=== PATIENT | female | born 1970 | race Two or more races ===

== ENCOUNTER 2019-07-03 01:08 | Emergency (ER) | payer OTHER ==
[2019-07-03] MEDS ORDERED: ONDANSETRON HCL INJ/PF 4 MG/2 ML SDV IV ONE (01:59)
[2019-07-03] MEDS ORDERED: NORMAL SALINE 1000 ML 1,000 ML IV ONE (01:59)
[2019-07-03 02:15] LABS: APPEARANCE,URINE TURBID; BILIRUBIN,URINE NEGATIVE (NEGATIVE); COLOR,URINE YELLOW; GLUCOSE, URINE NEGATIVE (NEGATIVE); KETONES,URINE NEGATIVE (NEGATIVE); LEUKOCYTE ESTERASE,URINE TRACE (NEGATIVE); NITRITE,URINE NEGATIVE (NEGATIVE); PROTEIN,URINE 30 mg/dL (NEGATIVE); URINE SPECIFIC GRAVITY 1.016; UROBILINOGEN,URINE NEGATIVE mg/dL (<2.0)
[2019-07-03 02:25] LABS: ABSOLUTE EOSINOPHILS # (AUTO) 0.1 10^3/uL (0.0-0.6); ABSOLUTE LYMPHOCYTES (AUTO) 2.5 10^3/uL (0.5-4.7); ABSOLUTE MONOCYTES (AUTO) 0.6 10^3/uL (0.1-1.4); ABSOLUTE NEUT (AUTO) 4.9 10^3/uL (1.7-8.2); BASOPHILS % (AUTO) 0.4 % (0-2); EOSINOPHILS % (AUTO) 1.1 % (0-6); HEMATOCRIT 39.6 % (36.0-47.0); HEMOGLOBIN 13.7 g/dL (12.0-15.5); LYMPHOCYTES % (AUTO) 30.9 % (13-45); MEAN CORPUSCULAR HEMOGLOBIN 31.3 pg (27.0-33.4); MEAN CORPUSCULAR HGB CONC 34.6 g/dL (32.0-36.0); MEAN CORPUSCULAR VOLUME 91 fl (80-97); MONOCYTES % (AUTO) 7.7 % (3-13); PLATELET COUNT 244 10^3/uL (150-450); RED BLOOD COUNT 4.38 10^6/uL (3.72-5.28); SEGMENTED NEUTROPHILS % (AUTO) 59.9 % (42-78); TOTAL CELLS COUNTED % (AUTO) 100 %; WHITE BLOOD COUNT 8.1 10^3/uL (4.0-10.5)
[2019-07-03 02:42] LABS: ALBUMIN 4.7 g/dL (3.5-5.0); ALKALINE PHOSPHATASE 93 U/L (38-126); ANION GAP 12 (5-19); ASPARTATE AMINO TRANSFERASE 24 U/L (14-36); BILIRUBIN,TOTAL 0.3 mg/dL (0.2-1.3); BLOOD UREA NITROGEN 18 mg/dL (7-20); CARBON DIOXIDE 25 mmol/L (22-30); CHLORIDE 107 mmol/L (98-107); GLUCOSE 116 mg/dL (75-110); POTASSIUM 3.6 mmol/L (3.6-5.0); TOTAL PROTEIN 7.9 g/dL (6.3-8.2)
[2019-07-03] MEDS ORDERED: KETOROLAC TROMETHAMINE INJ/PF 30 MG/1 ML SDV IV ONE (03:03)
[2019-07-03] MEDS ORDERED: MORPHINE SULFATE 10 MG/ML INJ IV ONE (03:09)
--- NOTE | 2019-07-03 03:11 | ER Document Report ---
ED GI/ - General Chief Complaint: Possible Kidney Stone Stated Complaint: BACK PAIN Time Seen by Provider: 07/03/19 03:04 Notes: Patient is a 49-year-old female that comes emergency department for chief complaint of sudden onset severe left flank pain radiating around to her left abdomen. She states the pain started suddenly and woke her out of her sleep, she vomited twice. She denies dysuria, vaginal bleeding or discharge, fever. She denies history of kidney stones. She has had an umbilical hernia repair, cervical fusion, C-sections. She denies medical history otherwise. TRAVEL OUTSIDE OF THE [place] IN LAST 30 DAYS: No - Related Data Allergies/Adverse Reactions: Iodinated Contrast Media Allergy (Severe, Verified 07/03/19 04:35) Anaphylaxis tizanidine Allergy (Severe, Verified 07/03/19 04:35) Hives Home Medications: Gabapentin. Cymbalta. Topamax Past Medical History - General Information source: Patient - Social History Smoking Status: Current Every Day Smoker Frequency of alcohol use: None Drug Abuse: None Lives with: Family Family History: Reviewed & Not Pertinent Patient has suicidal ideation: No Patient has homicidal ideation: No Past Surgical History: Reports: Hx Section, Hx Herniorrhaphy Review of Systems - Review of Systems Constitutional: No symptoms reported EENT: No symptoms reported Cardiovascular: No symptoms reported Respiratory: No symptoms reported Gastrointestinal: See HPI Genitourinary: See HPI Female Genitourinary: No symptoms reported Musculoskeletal: No symptoms reported Skin: No symptoms reported Hematologic/Lymphatic: No symptoms reported Neurological/Psychological: No symptoms reported Physical Exam - Vital signs Vitals: Temp Pulse Resp BP Pulse Ox 97.2 F 69 24 H 146/74 H 100 07/03/19 01:17 07/03/19 01:17 07/03/19 01:17 07/03/19 01:17 07/03/19 01:17 - Notes Notes: GENERAL: Patient restless and and very uncomfortable HEAD: Normocephalic, atraumatic. EYES: Pupils equal, round, and reactive to light. Extraocular movements intact. ENT: Oral mucosa moist, tongue midline. Oropharynx unremarkable. Airway patent. LUNGS: Clear to auscultation bilaterally, no wheezes, rales, or rhonchi. No respiratory distress. HEART: Regular rate and rhythm. No murmur ABDOMEN: There is tenderness along the left mid to lower abdomen generally, no guarding, remaining abdomen completely unremarkable GENITOURINARY: Deferred EXTREMITIES: Moves all 4 extremities spontaneously. No edema, normal radial and dorsalis pedis pulses bilaterally. No cyanosis. BACK: Left-sided CVA tenderness. No cervical, thoracic, lumbar midline tenderness. No saddle anesthesia, normal distal neurovascular exam. Moves all extremities in full range of motion. NEUROLOGICAL: Alert and oriented x3. Normal speech. Cranial nerves II through XII grossly intact. PSYCH: Normal affect, normal mood. SKIN: Warm, dry, normal turgor. No rashes or lesions noted. Course - Re-evaluation Re-evalutation: Patient initially very uncomfortable, has left-sided CVA tenderness and left- sided abdominal tenderness. She is afebrile, vital signs unremarkable. CBC, chemistry unremarkable. Urine shows only 4 white blood cells and trace leukocyte esterase. There is no blood but patient's symptoms are very suggestive of a stone. Discussed with patient. She has never had a kidney stone, therefore we will image her to rule out emergent abnormality. Imaging shows hydronephrosis on the left but no other obvious findings. Patient did urinate a very large amount reportedly before she went to CAT scan. I suspect she actually passed a stone. Her symptoms are very suggestive of this with sudden onset pain in her initial presentation. Symptoms completely resolved after treatment. She still will be treated for potential infection and a urine culture will be placed. She was provided with a copy of her report and she states she will follow closely to have the spot on her liver imaged. Discussed urology follow-up and return precautions in detail with patient and . They state understanding and agreement. Asymptomatic and well- appearing at time of discharge. - Vital Signs Vital signs: Temp Pulse Resp BP Pulse Ox 98.6 F 73 18 116/74 100 07/03/19 05:10 07/03/19 05:10 07/03/19 05:10 07/03/19 05:10 07/03/19 05:10 - Laboratory Result Diagrams: 07/03/19 02:07 07/03/19 02:07 Laboratory results interpreted by me: 07/03/19 07/03/19 01:51 02:07 Est GFR (MDRD) Non-Af 58 L Glucose 116 H Urine Protein 30 H Urine Blood SMALL H Ur Leukocyte Esterase TRACE H Discharge - Discharge Clinical Impression: Left flank pain Vomiting Qualifiers: Vomiting type: unspecified Vomiting Intractability: non-intractable Nausea presence: with nausea Qualified Code(s): R11.2 - Nausea with vomiting, unspecified Abdominal pain Qualifiers: Abdominal location: left lower quadrant Qualified Code(s): R10.32 - Left lower quadrant pain Condition: Stable Disposition: HOME, SELF-CARE Additional Instructions: You have swelling on your left kidney. Your overall evaluation is very suggestive that you passed a kidney stone tonight. Take antibiotics as prescribed, take pain and nausea medication if needed, ibuprofen can also help. Drink plenty of fluids. Follow-up with primary care. You have an abnormal area on your liver that needs to be followed up with additional imaging, please follow-up closely. Follow-up with urology referral listed below as well. Return if you worsen including returned severe pain, uncontrolled vomiting, fever, or any other concerning symptoms. [facility] [address] [place], [place] [id number] [facility] [address] [place], [place] [id number] Prescriptions: Cephalexin Monohydrate [Keflex 500 mg Capsule] 500 mg PO BID 7 Days #14 capsule Oxycodone HCl/Acetaminophen [Percocet 5-325 mg Tablet] 1 - 2 tab PO Q4H PRN #10 tablet PRN Reason: Ondansetron [Zofran Odt 4 mg Tablet] 1 - 2 tab PO Q4H PRN #15 tab.rapdis PRN Reason: For Nausea/Vomiting
--- NOTE | 2019-07-03 04:17 | RADIOLOGY REPORT (SQ) ---
EXAM DESCRIPTION: CT ABDOMEN PELVIS WITHOUT IV CONTRAST COMPLETED DATE/TME: 07/03/2019 03:10 CLINICAL HISTORY: 49 years, Female, left flank and abdominal pain COMPARISON: None. TECHNIQUE: Images stored on PACS. All CT scanners at this facility use dose modulation, iterative reconstruction, and/or weight based dosing when appropriate to reduce radiation dose to as low as reasonably achievable (ALARA). [facility]: Dose Right [facility]: CareDose [facility]: Dose Right [facility]: Teradose 4D [facility]: Scannx LIMITATIONS: None. FINDINGS: Lung bases are grossly clear. The heart is of normal size. No pleural or pericardial fluid Low-attenuation lesion identified right lobe of the liver segment VIII measuring 2.4 cm, series 3 image 22. Gallbladder is nondistended without inflammatory change. Pancreas is of grossly normal contour. Spleen appears normal. The adrenals appear normal. Kidneys appear normal, bilaterally. Mild stranding left perinephric. The bowel is nonobstructed. No focal inflammatory changes. The appendix is normal. No free air, free fluid, or bulky adenopathy. Pelvic contents are unremarkable Visualized bones are unremarkable IMPRESSION: Mild stranding left perinephric. No evidence of urolithiasis or hydronephrosis. Correlation with urinalysis is advised. The possibility of pyelonephritis is raised. Indeterminate lesion right lobe of the liver. If this is not a known finding, further evaluation with multiphasic contrast-enhanced MRI may be of benefit TECHNICAL DOCUMENTATION: Quality ID # [id number]: Final reports with documentation of one or more dose reduction techniques (e.g., Automated exposure control, adjustment of the mA and/or kV according to patient size, use of iterative reconstruction technique) copyright 2011 [employer]- All Rights Reserved
[2019-07-03] MEDS ORDERED: CEPHALEXIN 500 MG CAPSULE PO ONE (04:37)
[2019-07-03] MEDS ORDERED: HYDROCODONE/ACETAMINOPHEN 5-325 MG (6 TAB/ER DISP) PO PRN (04:37)
[2019-07-03] MEDS ORDERED: ONDANSETRON ODT 4 MG TAB (6 TAB/ER DISP) PO PRN (04:38)
[2019-07-03 05:10] VITALS: BP 116/74
== END 2019-07-03 05:14 | disposition home or self-care (01) ==
LOC: ER 01:08
DX: R10.32 Left lower quadrant pain (principal); R11.2 Nausea with vomiting, unspecified; M54.9 Dorsalgia, unspecified; F17.200 Nicotine dependence, unspecified, uncomplicated; Z98.1 Arthrodesis status
CPT/HCPCS: 99284; 96361; 96374; 96375; 36415; 87086; 83690; 85025; 81025; 80053; 81001; 74176; J1885; J2270; J2405; J7030